=== PATIENT | female | born 1960 | race Caucasian/White ===

== ENCOUNTER 2018-10-04 10:40 | Emergency (ER) | payer OTHER ==
[~2018-10-04] VITALS: Ht 154.9 cm; Wt 86.2 kg
[2018-10-04] MEDS ORDERED: NAPROXEN500 M1 (10:45)
[2018-10-04] MEDS ORDERED: NORVASC5 MG (10:46)
[2018-10-04] MEDS ORDERED: CIPRO500 MG (10:46)
== END 2018-10-04 18:45 | disposition home or self-care (01) ==
LOC: ER 10:40
DX: M79.661 Pain in right lower leg (principal)